=== PATIENT | male | born 1990 | race Caucasian/White ===

== ENCOUNTER 2023-08-12 19:51 | Outpatient (CLI) | payer OTHER, SELFPAY ==
--- NOTE | 2023-09-17 11:41 | W.PM.SLEEP ---
Sleep Study Details Details Interpreting Provider: Linda Date of Sleep Study: 08/12/23 Sleep Study Details: STUDY TYPE:? Hospital-based ? BMI:? 43.2 ORDERING PROVIDER:? Jalen INDICATION:? Concerns about sleep apnea ? SLEEP SUMMARY: 380 minutes total sleep time RESPIRATORY SUMMARY:? Mean oxygen awake 93 asleep 93 minimum 80 4.4 minutes oxygen between 80 and 88% AHI 24.6, supine AHI 14.3, no supine REM sleep seen Nonsupine AHI 25.9 PERIODIC LIMB MOVEMENTS OF SLEEP:? None CARDIAC:? Awake 75, asleep 72. No arrhythmias noted IMPRESSION:? Moderate obstructive sleep apnea RECOMMENDATION: Treatment options include weight loss, AutoSet CPAP, and dental appliance.
== END 2023-08-12 19:52 | disposition home or self-care (01) ==
LOC: SLEEP 19:57
PROVIDERS: Visit Provider Otolaryngology
DX: G47.33 Obstructive sleep apnea (adult) (pediatric) (principal)
CPT/HCPCS: 95810